=== PATIENT | male | born 1945 | race Caucasian/White ===

== ENCOUNTER 2021-10-21 16:53 | Inpatient (IN) ==
[2021-10-21] MEDS ORDERED: Ondansetron 4 MG/2 ML VIAL IVP PRN (19:48)
[2021-10-21] MEDS ORDERED: Naloxone 0.4 MG/ML INJ IVP PRN (19:48)
[2021-10-21] MEDS ORDERED: Albuterol 2.5 MG/3 ML NEBULIZER IH PRN (19:55)
[2021-10-21] MEDS ORDERED: cefTRIAXone 1,000 MG in Water for inj. (sterile) 10 ML IVP SCH (20:00)
[2021-10-21] MEDS ORDERED: Melatonin 3 MG TABLET PO PRN (21:00)
[2021-10-21] MEDS: Ipratropium/Albuterol Neb 3 ML IH SCH (23:32)
[2021-10-21] MEDS: Nicotine 21 MG PATCH.TD24 TD SCH (23:39)
[2021-10-22] MEDS: Acetaminophen 325 MG TABLET PO PRN (01:03)
[2021-10-22] MEDS: Ipratropium/Albuterol Neb 3 ML IH SCH ×4 (04:34→20:09)
[2021-10-22] MEDS: *HR* Heparin 5,000 UNIT/ML VIAL SQ SCH ×2 (05:11→16:59)
[2021-10-22 05:42] LABS: Basophils % 0.1 %; Hematocrit 31.7 % (37.5-50.1); Hemoglobin 10.4 g/dL (12.9-16.9); Immature Granulocytes % 0.6 % (0-4); Lymphocytes # 0.7 K/mcL (0.6-4.6); Lymphocytes % 6.6 %; Mean Corpuscular HGB Conc 32.8 g/dL (31.6-35.5); Mean Corpuscular Hemoglobin 29.6 pg (28.0-33.3); Mean Corpuscular Volume 90.3 fL (83.0-100.0); Monocytes # 0.4 K/mcL (0.0-1.3); Monocytes % 4.5 %; Neutrophils # 8.7 K/mcL (1.6-8.9); Platelet Count 329 K/mcL (140-400); Red Blood Count 3.51 M/mcL (4.19-5.50); Red Cell Distribution Width 15.6 % (11.5-14.5); Segmented Neutrophils % 88.2 %; White Blood Count 9.8 K/mcL (4.3-11.1)
[2021-10-22 05:51] LABS: INR 1.1; Prothrombin Time 12.2 Seconds (9.4-12.1)
[2021-10-22 05:54] LABS: Activated Partial Thrombo Time 27.5 Seconds (26.0-36.0)
[2021-10-22 05:57] LABS: Alanine Aminotransferase 12 Units/L (7-52); Albumin 3.5 g/dL (3.5-5.7); Albumin/Globulin Ratio 1.2 (1.1-2.2); Alkaline Phosphatase 83 Units/L (34-104); Aspartate Amino Transferase 14 Units/L (13-39); BUN/Creatinine Ratio 25 (6-26); Bilirubin,Total 0.3 mg/dL (0.3-1.0); Blood Urea Nitrogen 23 mg/dL (8-23); Calcium 9.3 mg/dL (8.6-10.3); Carbon Dioxide 34 mEq/L (23-29); Chloride 94 mEq/L (98-107); Glucose 164 mg/dL (70-105); Magnesium 1.9 mg/dL (1.6-2.6); Osmolality,Calculated 285 (280-300); Phosphorous 1.9 mg/dL (2.7-4.5); Potassium 4.2 mEq/L (3.5-5.1); Sodium 134 mEq/L (136-145); Total Protein 6.5 g/dL (6.4-8.9); Troponin I < 0.03 ng/mL (< 0.04); eGFR For African Americans > 60 (> 60); eGFR For Non-African Americans > 60 (> 60)
[2021-10-22 08:23] LABS: ABG Base Excess 7 mEq/L (-2 to 3); ABG HCO3 34 mEq/L (21-27); ABG Oxygen Saturation 96 % (95-98); ABG PCO2 55 mmHg (35-45); ABG PH 7.39 pH Units (7.32-7.45); ABG PO2 83 mmHg (85-104); ABG TCO2 35 mEq/L (20-26)
[2021-10-22] MEDS ORDERED: predniSONE 20 MG TABLET PO SCH (09:00)
[2021-10-22] MEDS: Vancomycin 1,250 MG/262.5 ML IV.SOLN IVPB SCH ×2 (09:03→19:48)
[2021-10-22] MEDS: levoFLOXacin 750 MG/150 ML 750 MG/150 ML BAG IVPB SCH (09:04)
[2021-10-22] MEDS ORDERED: *HR* Propofol 200 MG/20 ML VIAL IVP ONE (11:09)
[2021-10-22] MEDS ORDERED: Lidocaine -MPF 2% 5 ML VIAL ONE (11:09)
[2021-10-22] MEDS ORDERED: Lidocaine -MPF 4% 5 ML AMPUL ONE (11:41)
[2021-10-22] MEDS ORDERED: *HR* Metoprolol 5 MG/5 ML VIAL IVP ONE (12:44)
[2021-10-22] MEDS ORDERED: Azithromycin 500 MG in D5% in Water 250 ML IVPB SCH (13:00)
[2021-10-22 16:43] LABS: Appearance of Body Fluid Cloudy (Clear); Volume of Body Fluid 16 mL
[2021-10-22 16:53] LABS: Appearance of Body Fluid Hazy (Clear); Source of Body Fluid Left Lower Lower Lob; Volume of Body Fluid 25 mL
[2021-10-22] MEDS: Famotidine 20 MG TABLET PO SCH (16:59)
[2021-10-22] MEDS: MethylPREDNISolone 40 MG/ML VIAL IVP SCH (16:59)
[2021-10-22] MEDS: *HR* Ticagrelor 90 MG TABLET PO SCH (19:46)
[2021-10-22] MEDS: Nicotine 21 MG PATCH.TD24 TD SCH (19:46)
[2021-10-23] MEDS: Ipratropium/Albuterol Neb 3 ML IH SCH ×4 (03:53→23:57)
[2021-10-23] MEDS: MethylPREDNISolone 40 MG/ML VIAL IVP SCH ×2 (05:28→17:04)
[2021-10-23] MEDS: *HR* Heparin 5,000 UNIT/ML VIAL SQ SCH ×2 (05:28→17:04)
[2021-10-23 05:37] LABS: Hematocrit 30.7 % (37.5-50.1); Hemoglobin 9.7 g/dL (12.9-16.9); Mean Corpuscular HGB Conc 31.6 g/dL (31.6-35.5); Mean Corpuscular Volume 91.9 fL (83.0-100.0); Platelet Count 326 K/mcL (140-400); Red Blood Count 3.34 M/mcL (4.19-5.50); Red Cell Distribution Width 15.9 % (11.5-14.5)
[2021-10-23 05:38] LABS: White Blood Count 16.7 K/mcL (4.3-11.1)
[2021-10-23 06:02] LABS: BUN/Creatinine Ratio 23 (6-26); Blood Urea Nitrogen 19 mg/dL (8-23); Calcium 8.7 mg/dL (8.6-10.3); Carbon Dioxide 31 mEq/L (23-29); Chloride 98 mEq/L (98-107); Glucose 126 mg/dL (70-105); Osmolality,Calculated 282 (280-300); Phosphorous 2.1 mg/dL (2.7-4.5); Potassium 4.5 mEq/L (3.5-5.1); Sodium 134 mEq/L (136-145); eGFR For African Americans > 60 (> 60); eGFR For Non-African Americans > 60 (> 60)
[2021-10-23] MEDS: Vancomycin 1,250 MG/262.5 ML IV.SOLN IVPB SCH (08:52)
[2021-10-23] MEDS: amLODIPine 5 MG TABLET PO SCH (08:53)
[2021-10-23] MEDS: Famotidine 20 MG TABLET PO SCH ×2 (08:53→16:59)
[2021-10-23] MEDS: levoFLOXacin 750 MG/150 ML 750 MG/150 ML BAG IVPB SCH (08:53)
[2021-10-23] MEDS: Aspirin 81 MG TAB.CHEW PO SCH (08:53)
[2021-10-23] MEDS: *HR* Ticagrelor 90 MG TABLET PO SCH ×2 (08:53→19:57)
[2021-10-23] MEDS: Cholecalciferol (D-3) 1,000 UNIT (25MCG) TABLET PO SCH (08:53)
[2021-10-23] MEDS: Furosemide 20 MG TABLET PO SCH (08:53)
[2021-10-23] MEDS: Nicotine 21 MG PATCH.TD24 TD SCH (19:57)
[2021-10-23] MEDS: Vancomycin 1,500 MG/265 ML IV.SOLN IVPB SCH (22:26)
[2021-10-24] MEDS: Ipratropium/Albuterol Neb 3 ML IH SCH ×4 (03:57→20:38)
[2021-10-24] MEDS: MethylPREDNISolone 40 MG/ML VIAL IVP SCH ×2 (06:17→18:10)
[2021-10-24] MEDS: *HR* Heparin 5,000 UNIT/ML VIAL SQ SCH ×2 (06:17→18:09)
[2021-10-24] MEDS: amLODIPine 5 MG TABLET PO SCH (09:26)
[2021-10-24] MEDS: Aspirin 81 MG TAB.CHEW PO SCH (09:26)
[2021-10-24] MEDS: Furosemide 20 MG TABLET PO SCH (09:26)
[2021-10-24] MEDS: Cholecalciferol (D-3) 1,000 UNIT (25MCG) TABLET PO SCH (09:26)
[2021-10-24] MEDS: Vancomycin 1,500 MG/265 ML IV.SOLN IVPB SCH (09:27)
[2021-10-24] MEDS: *HR* Ticagrelor 90 MG TABLET PO SCH ×2 (09:27→20:25)
[2021-10-24] MEDS: levoFLOXacin 750 MG/150 ML 750 MG/150 ML BAG IVPB SCH (12:28)
[2021-10-24] MEDS: Famotidine 20 MG TABLET PO SCH ×2 (18:04→18:09)
[2021-10-24] MEDS: Acetaminophen 325 MG TABLET PO PRN (20:24)
[2021-10-25] MEDS: Ipratropium/Albuterol Neb 3 ML IH SCH ×2 (04:01→11:03)
[2021-10-25] MEDS: *HR* Heparin 5,000 UNIT/ML VIAL SQ SCH (05:05)
[2021-10-25] MEDS: MethylPREDNISolone 40 MG/ML VIAL IVP SCH (05:06)
[2021-10-25] MEDS ORDERED: Nicotine 21 MG PATCH.TD24 TD SCH ×2 (06:00→09:00)
[2021-10-25] MEDS: Aspirin 81 MG TAB.CHEW PO SCH (07:36)
[2021-10-25] MEDS: Cholecalciferol (D-3) 1,000 UNIT (25MCG) TABLET PO SCH (07:36)
[2021-10-25] MEDS: *HR* Ticagrelor 90 MG TABLET PO SCH (07:37)
[2021-10-25] MEDS: levoFLOXacin 750 MG/150 ML 750 MG/150 ML BAG IVPB SCH (07:37)
[2021-10-25] MEDS: Furosemide 20 MG TABLET PO SCH (07:38)
[2021-10-25] MEDS: Famotidine 20 MG TABLET PO SCH (07:38)
[2021-10-25] MEDS: amLODIPine 5 MG TABLET PO SCH (07:38)
[2021-10-25 11:02] VITALS: BP 130/61; PULSE 110; TEMP 98; O2SAT 92
== END 2021-10-25 13:54 | disposition home or self-care (01) | DRG 871 ==
LOC: 2NENU → SUATTDRO 19:10
PROVIDERS: ADMIT Internal Medicine; ATTEND Family Medicine

== ENCOUNTER 2022-01-14 20:22 | Inpatient (IN) ==
[2022-01-14] MEDS ORDERED: Ondansetron 4 MG/2 ML VIAL IVP PRN (22:11)
[2022-01-14] MEDS ORDERED: Melatonin 3 MG TABLET PO PRN (22:11)
[2022-01-14] MEDS ORDERED: Naloxone 0.4 MG/ML INJ IVP PRN (22:11)
[2022-01-14] MEDS ORDERED: Acetaminophen 325 MG TABLET PO PRN (22:11)
[2022-01-14 23:33] LABS: Adenovirus Not Detected (Not Detect); Bordetella Pertussis Not Detected (Not Detect); Chlamydophila pneumoniae Not Detected (Not Detect); Coronavirus 229E Not Detected (Not Detect); Coronavirus HKU1 Not Detected (Not Detect); Coronavirus NL63 Not Detected (Not Detect); Coronavirus OC43 Not Detected (Not Detect); Human Metapneumovirus Not Detected (Not Detect); Human Rhinovirus/Enterovirus Not Detected (Not Detect); Influenza A Subtype 2009 H1 Not Detected (Not Detect); Influenza B Not Detected (Not Detect); Mycoplasma pneumoniae Not Detected (Not Detect); Parainfluenza Virus 1 Not Detected (Not Detect); Parainfluenza Virus 2 Not Detected (Not Detect); Parainfluenza Virus 3 Not Detected (Not Detect); Parainfluenza Virus 4 Not Detected (Not Detect); Respiratory Syncytial Virus Not Detected (Not Detect); SARS-CoV-2 Not Detected (Not Detect)
[2022-01-14 23:54] LABS: Bilirubin,Urine Negative (Negative); Blood,Urine Negative (Negative); Clarity,Urine Clear (Clear); Color,Urine Light-Yellow (Yellow); Glucose,Urine (UA) Normal (Normal); Ketones,Urine Negative (Negative); Leukocyte Esterase,Urine Negative (Negative); Nitrite,Urine Negative (Negative); PH,Urine 6.5 pH Units (5.0-8.0); Protein,Urine Negative (Neg-Trace); Specific Gravity,Urine > 1.030 (1.010-1.025); Urobilinogen,Urine Normal (Normal)
[2022-01-15] MEDS ORDERED: Albuterol 2.5 MG/3 ML NEBULIZER IH PRN (00:02)
[2022-01-15 01:41] LABS: Basophils % 0.1 %; Hematocrit 30.8 % (37.5-50.1); Hemoglobin 9.8 g/dL (12.9-16.9); Immature Granulocytes % 0.5 % (0-4); Lymphocytes # 0.4 K/mcL (0.6-4.6); Lymphocytes % 3.9 %; Mean Corpuscular HGB Conc 31.8 g/dL (31.6-35.5); Mean Platelet Volume 9.1 fL (9.4-12.4); Monocytes % 0.3 %; Neutrophils # 9.3 K/mcL (1.6-8.9); Platelet Count 313 K/mcL (140-400); Red Cell Distribution Width 16.4 % (11.5-14.5); Segmented Neutrophils % 95.2 %; White Blood Count 9.8 K/mcL (4.3-11.1)
[2022-01-15 01:54] LABS: INR 1.1
[2022-01-15 01:58] LABS: Alanine Aminotransferase 14 Units/L (7-52); Albumin 3.9 g/dL (3.5-5.7); Albumin/Globulin Ratio 1.6 (1.1-2.2); Alkaline Phosphatase 69 Units/L (34-104); Aspartate Amino Transferase 16 Units/L (13-39); BUN/Creatinine Ratio 21 (6-26); Bilirubin,Total 0.3 mg/dL (0.3-1.0); Blood Urea Nitrogen 22 mg/dL (8-23); Calcium 9.7 mg/dL (8.6-10.3); Carbon Dioxide 31 mEq/L (23-29); Chloride 95 mEq/L (98-107); Globulin 2.5 g/dL (2.4-3.5); Glucose 231 mg/dL (70-105); Magnesium 1.7 mg/dL (1.6-2.6); Osmolality,Calculated 295 (280-300); Phosphorous 2.2 mg/dL (2.7-4.5); Potassium 4.3 mEq/L (3.5-5.1); Sodium 137 mEq/L (136-145); Total Protein 6.4 g/dL (6.4-8.9); eGFR For African Americans > 60 (> 60); eGFR For Non-African Americans > 60 (> 60)
[2022-01-15] MEDS: Ipratropium/Albuterol Neb 3 ML IH SCH ×4 (04:04→19:37)
[2022-01-15] MEDS: Doxycycline 100 MG in 0.9 % Sodium Chloride Mini Bag 100 ML IVPB SCH ×2 (04:45→17:31)
[2022-01-15] MEDS: *HR* Heparin 5,000 UNIT/ML VIAL SQ SCH ×2 (04:46→17:31)
[2022-01-15 05:10] LABS: Estimated Average Glucose 140 mg/dl; Hemoglobin A1C 6.5 %
[2022-01-15] MEDS: predniSONE 20 MG TABLET PO SCH (08:41)
[2022-01-15] MEDS: cefTRIAXone 1,000 MG in 0.9 % Sodium Chloride Mini Bag 100 ML IVPB SCH (08:41)
[2022-01-15] MEDS ORDERED: Azithromycin 500 MG in 0.9 % Sodium Chloride 250 ML IVPB SCH (09:00)
[2022-01-15] MEDS ORDERED: Ipratropium/Albuterol Neb 3 ML IH PRN (17:21)
[2022-01-15] MEDS: *HR* Ticagrelor 90 MG TABLET PO SCH (19:59)
[2022-01-16] MEDS: Ipratropium/Albuterol Neb 3 ML IH SCH ×4 (03:35→20:11)
[2022-01-16] MEDS: *HR* Heparin 5,000 UNIT/ML VIAL SQ SCH ×2 (05:15→17:02)
[2022-01-16] MEDS: Doxycycline 100 MG in 0.9 % Sodium Chloride Mini Bag 100 ML IVPB SCH ×2 (05:15→17:02)
[2022-01-16] MEDS: *HR* HYDROcodone/Acet 10/325 mg TABLET PO PRN (08:00)
[2022-01-16] MEDS: cefTRIAXone 1,000 MG in 0.9 % Sodium Chloride Mini Bag 100 ML IVPB SCH (08:00)
[2022-01-16] MEDS: Furosemide 20 MG TABLET PO SCH (08:00)
[2022-01-16] MEDS: amLODIPine 5 MG TABLET PO SCH (08:01)
[2022-01-16] MEDS: *HR* Ticagrelor 90 MG TABLET PO SCH ×2 (08:01→21:16)
[2022-01-16] MEDS: predniSONE 20 MG TABLET PO SCH (08:01)
[2022-01-16] MEDS: Aspirin 81 MG TAB.CHEW PO SCH (08:01)
[2022-01-16 09:40] LABS: Basophils % 0.1 %; Eosinophils % 0.2 %; Hematocrit 30.1 % (37.5-50.1); Hemoglobin 9.5 g/dL (12.9-16.9); Immature Granulocytes % 0.8 % (0-4); Lymphocytes # 1.9 K/mcL (0.6-4.6); Lymphocytes % 9.5 %; Mean Corpuscular HGB Conc 31.6 g/dL (31.6-35.5); Mean Corpuscular Hemoglobin 27.8 pg (28.0-33.3); Mean Platelet Volume 9.5 fL (9.4-12.4); Monocytes # 2.4 K/mcL (0.0-1.3); Monocytes % 12.1 %; Neutrophils # 15.5 K/mcL (1.6-8.9); Platelet Count 332 K/mcL (140-400); Red Blood Count 3.42 M/mcL (4.19-5.50); Red Cell Distribution Width 16.7 % (11.5-14.5); Segmented Neutrophils % 77.3 %
[2022-01-16 09:51] LABS: BUN/Creatinine Ratio 24 (6-26); Blood Urea Nitrogen 20 mg/dL (8-23); Calcium 9.6 mg/dL (8.6-10.3); Carbon Dioxide 31 mEq/L (23-29); Chloride 98 mEq/L (98-107); Glucose 122 mg/dL (70-105); Magnesium 1.9 mg/dL (1.6-2.6); Osmolality,Calculated 288 (280-300); Phosphorous 3.3 mg/dL (2.7-4.5); Potassium 3.9 mEq/L (3.5-5.1); Sodium 137 mEq/L (136-145); eGFR For African Americans > 60 (> 60); eGFR For Non-African Americans > 60 (> 60)
[2022-01-17] MEDS: Ipratropium/Albuterol Neb 3 ML IH SCH ×2 (03:34→07:40)
[2022-01-17] MEDS: *HR* Heparin 5,000 UNIT/ML VIAL SQ SCH ×2 (05:05→16:59)
[2022-01-17] MEDS: Doxycycline 100 MG in 0.9 % Sodium Chloride Mini Bag 100 ML IVPB SCH ×2 (05:06→16:59)
[2022-01-17 05:32] LABS: Basophils % 0.1 %; Eosinophils % 0.2 %; Hemoglobin 8.5 g/dL (12.9-16.9); Immature Granulocytes % 0.6 % (0-4); Lymphocytes # 1.9 K/mcL (0.6-4.6); Lymphocytes % 11.2 %; Mean Corpuscular HGB Conc 31.5 g/dL (31.6-35.5); Mean Corpuscular Hemoglobin 27.9 pg (28.0-33.3); Mean Corpuscular Volume 88.5 fL (83.0-100.0); Mean Platelet Volume 9.6 fL (9.4-12.4); Monocytes # 1.8 K/mcL (0.0-1.3); Monocytes % 10.7 %; Neutrophils # 12.9 K/mcL (1.6-8.9); Platelet Count 319 K/mcL (140-400); Red Blood Count 3.05 M/mcL (4.19-5.50); Red Cell Distribution Width 16.6 % (11.5-14.5); Segmented Neutrophils % 77.2 %; White Blood Count 16.7 K/mcL (4.3-11.1)
[2022-01-17 05:45] LABS: BUN/Creatinine Ratio 27 (6-26); Blood Urea Nitrogen 20 mg/dL (8-23); Calcium 8.8 mg/dL (8.6-10.3); Carbon Dioxide 28 mEq/L (23-29); Chloride 100 mEq/L (98-107); Glucose 136 mg/dL (70-105); Magnesium 1.9 mg/dL (1.6-2.6); Osmolality,Calculated 285 (280-300); Phosphorous 3.6 mg/dL (2.7-4.5); Potassium 4.2 mEq/L (3.5-5.1); Sodium 135 mEq/L (136-145); eGFR For African Americans > 60 (> 60); eGFR For Non-African Americans > 60 (> 60)
[2022-01-17] MEDS: amLODIPine 5 MG TABLET PO SCH (07:21)
[2022-01-17] MEDS: Aspirin 81 MG TAB.CHEW PO SCH (08:07)
[2022-01-17] MEDS: predniSONE 20 MG TABLET PO SCH (08:07)
[2022-01-17] MEDS: *HR* Ticagrelor 90 MG TABLET PO SCH ×2 (08:07→20:07)
[2022-01-17] MEDS: Furosemide 20 MG TABLET PO SCH (08:07)
[2022-01-17] MEDS: cefTRIAXone 1,000 MG in 0.9 % Sodium Chloride Mini Bag 100 ML IVPB SCH (08:07)
[2022-01-17] MEDS: *HR* HYDROcodone/Acet 10/325 mg TABLET PO PRN (10:44)
[2022-01-18 04:46] LABS: Basophils % 0.1 %; Eosinophils % 0.1 %; Hematocrit 27.5 % (37.5-50.1); Immature Granulocytes % 0.8 % (0-4); Lymphocytes # 1.7 K/mcL (0.6-4.6); Lymphocytes % 10.6 %; Mean Corpuscular HGB Conc 32.7 g/dL (31.6-35.5); Mean Corpuscular Hemoglobin 28.6 pg (28.0-33.3); Mean Corpuscular Volume 87.3 fL (83.0-100.0); Mean Platelet Volume 9.4 fL (9.4-12.4); Monocytes # 1.6 K/mcL (0.0-1.3); Monocytes % 9.8 %; Neutrophils # 12.6 K/mcL (1.6-8.9); Platelet Count 334 K/mcL (140-400); Red Blood Count 3.15 M/mcL (4.19-5.50); Red Cell Distribution Width 16.3 % (11.5-14.5); Segmented Neutrophils % 78.6 %
[2022-01-18 05:08] LABS: % Iron Saturation 6 % (20-55); BUN/Creatinine Ratio 29 (6-26); Blood Urea Nitrogen 22 mg/dL (8-23); Calcium 9.2 mg/dL (8.6-10.3); Carbon Dioxide 30 mEq/L (23-29); Chloride 100 mEq/L (98-107); Glucose 131 mg/dL (70-105); Iron 21 mcg/dL (65-175); Osmolality,Calculated 283 (280-300); Phosphorous 3.4 mg/dL (2.7-4.5); Potassium 4.4 mEq/L (3.5-5.1); Sodium 134 mEq/L (136-145); Transferrin 267 mg/dL (203-362); eGFR For African Americans > 60 (> 60); eGFR For Non-African Americans > 60 (> 60)
[2022-01-18 05:25] LABS: Ferritin 10 ng/mL (20-250)
[2022-01-18 05:29] LABS: Folate 7.7 ng/mL (3.0-16.0)
[2022-01-18] MEDS: *HR* Heparin 5,000 UNIT/ML VIAL SQ SCH (05:36)
[2022-01-18] MEDS: Doxycycline 100 MG in 0.9 % Sodium Chloride Mini Bag 100 ML IVPB SCH (05:36)
[2022-01-18] MEDS: *HR* HYDROcodone/Acet 10/325 mg TABLET PO PRN (06:41)
[2022-01-18] MEDS: amLODIPine 5 MG TABLET PO SCH (09:03)
[2022-01-18] MEDS: Aspirin 81 MG TAB.CHEW PO SCH (09:10)
[2022-01-18] MEDS: *HR* Ticagrelor 90 MG TABLET PO SCH (09:10)
[2022-01-18] MEDS: predniSONE 20 MG TABLET PO SCH (09:11)
[2022-01-18] MEDS: Furosemide 20 MG TABLET PO SCH (09:11)
[2022-01-18] MEDS: cefTRIAXone 1,000 MG in 0.9 % Sodium Chloride Mini Bag 100 ML IVPB SCH (09:11)
[2022-01-18 10:27] VITALS: PULSE 77; TEMP 98.1; O2SAT 92
[2022-01-18 12:04] VITALS: BP 116/64
== END 2022-01-18 12:31 | disposition home or self-care (01) | DRG 193 ==
LOC: 3BNU → SUATTDRO 21:30 → 3BNU 01-17 17:53
PROVIDERS: ADMIT Internal Medicine; ATTEND Internal Medicine

== ENCOUNTER 2022-03-16 11:40 | Inpatient (IN) ==
[2022-03-16] MEDS ORDERED: methylPREDNISolone 125 MG/2 ML VIAL IVP ONE (11:48)
[2022-03-16] MEDS ORDERED: Ipratropium/Albuterol Neb 3 ML IH ONE (11:48)
[2022-03-16 11:58] LABS: ABG Base Excess 11 mEq/L (-2 to 3); ABG HCO3 39 mEq/L (21-27); ABG Oxygen Saturation 81 % (95-98); ABG PCO2 66 mmHg (35-45); ABG PH 7.38 pH Units (7.32-7.45); ABG PO2 48 mmHg (85-104); ABG TCO2 41 mEq/L (20-26)
[2022-03-16 12:14] LABS: Basophils % 0.2 %; Eosinophils # 0.3 K/mcL (0.0-0.6); Eosinophils % 1.8 %; Hemoglobin 11.3 g/dL (12.9-16.9); Immature Granulocytes % 0.7 % (0-4); Lymphocytes # 1.9 K/mcL (0.6-4.6); Lymphocytes % 11.9 %; Mean Corpuscular HGB Conc 29.7 g/dL (31.6-35.5); Mean Corpuscular Hemoglobin 27.4 pg (28.0-33.3); Mean Platelet Volume 8.8 fL (9.4-12.4); Monocytes # 2.1 K/mcL (0.0-1.3); Monocytes % 12.7 %; Neutrophils # 11.8 K/mcL (1.6-8.9); Platelet Count 356 K/mcL (140-400); Red Blood Count 4.13 M/mcL (4.19-5.50); Red Cell Distribution Width 16.4 % (11.5-14.5); Segmented Neutrophils % 72.7 %; White Blood Count 16.3 K/mcL (4.3-11.1)
[2022-03-16] MEDS ORDERED: levoFLOXacin 750 MG/150 ML 750 MG/150 ML BAG IVPB ONE (12:22)
[2022-03-16 12:41] LABS: BUN/Creatinine Ratio 26 (6-26); Blood Urea Nitrogen 27 mg/dL (8-23); Calcium 10.5 mg/dL (8.6-10.3); Carbon Dioxide 43 mEq/L (23-29); Chloride 92 mEq/L (98-107); Glucose 140 mg/dL (70-105); Osmolality,Calculated 299 (280-300); Potassium 4.1 mEq/L (3.5-5.1); Sodium 141 mEq/L (136-145); Troponin I < 0.03 ng/mL (< 0.04); eGFR For African Americans > 60 (> 60); eGFR For Non-African Americans > 60 (> 60)
[2022-03-16] MEDS ORDERED: Ondansetron 4 MG/2 ML VIAL IVP PRN (13:31)
[2022-03-16] MEDS ORDERED: Naloxone 0.4 MG/ML INJ IVP PRN (13:31)
[2022-03-16] MEDS ORDERED: Ringers Solution, Lactated 1,000 ML IVC SCH (13:45)
[2022-03-16] MEDS: *HR* HYDROcodone/Acet 10/325 mg TABLET PO PRN (14:39)
[2022-03-16] MEDS: Ipratropium/Albuterol Neb 3 ML IH SCH ×2 (16:26→20:30)
[2022-03-16] MEDS: Famotidine 20 MG TABLET PO SCH (20:17)
[2022-03-16] MEDS: *HR* Ticagrelor 90 MG TABLET PO SCH (20:17)
[2022-03-16] MEDS: *HR* Heparin 5,000 UNIT/ML VIAL SQ SCH (20:43)
[2022-03-16 21:01] LABS: Bilirubin,Urine Negative (Negative); Blood,Urine Negative (Negative); Clarity,Urine Clear (Clear); Color,Urine Yellow (Yellow); Glucose,Urine (UA) Normal (Normal); Ketones,Urine Negative (Negative); Leukocyte Esterase,Urine Negative (Negative); Nitrite,Urine Negative (Negative); Protein,Urine Trace mg/dL (Neg-Trace); Specific Gravity,Urine 1.025 (1.010-1.025); Urobilinogen,Urine Normal (Normal)
[2022-03-17] MEDS: Ipratropium/Albuterol Neb 3 ML IH SCH ×4 (04:14→19:43)
[2022-03-17] MEDS: *HR* Heparin 5,000 UNIT/ML VIAL SQ SCH ×3 (05:32→21:12)
[2022-03-17 06:11] LABS: Basophils % 0.1 %; Hematocrit 28.9 % (37.5-50.1); Immature Granulocytes % 0.5 % (0-4); Lymphocytes # 0.9 K/mcL (0.6-4.6); Lymphocytes % 7.2 %; Mean Corpuscular HGB Conc 31.8 g/dL (31.6-35.5); Mean Corpuscular Hemoglobin 27.7 pg (28.0-33.3); Mean Platelet Volume 9.1 fL (9.4-12.4); Monocytes # 1.3 K/mcL (0.0-1.3); Monocytes % 10.6 %; Neutrophils # 9.8 K/mcL (1.6-8.9); Platelet Count 268 K/mcL (140-400); Red Blood Count 3.32 M/mcL (4.19-5.50); Red Cell Distribution Width 16.2 % (11.5-14.5); Segmented Neutrophils % 81.6 %
[2022-03-17 06:23] LABS: Hemoglobin 9.2 g/dL (12.9-16.9)
[2022-03-17 07:03] LABS: BUN/Creatinine Ratio 33 (6-26); Blood Urea Nitrogen 29 mg/dL (8-23); Calcium 9.5 mg/dL (8.6-10.3); Carbon Dioxide 39 mEq/L (23-29); Chloride 96 mEq/L (98-107); Glucose 113 mg/dL (70-105); Osmolality,Calculated 295 (280-300); Potassium 4.4 mEq/L (3.5-5.1); Sodium 139 mEq/L (136-145); eGFR For African Americans > 60 (> 60); eGFR For Non-African Americans > 60 (> 60)
[2022-03-17] MEDS ORDERED: Azithromycin 500 MG in 0.9 % Sodium Chloride 250 ML IVPB SCH (09:00)
[2022-03-17] MEDS: Famotidine 20 MG TABLET PO SCH ×2 (09:34→21:12)
[2022-03-17] MEDS: amLODIPine 5 MG TABLET PO SCH (09:34)
[2022-03-17] MEDS: Aspirin 81 MG TAB.CHEW PO SCH (09:34)
[2022-03-17] MEDS: *HR* Ticagrelor 90 MG TABLET PO SCH ×2 (09:34→21:12)
[2022-03-17] MEDS: Cholecalciferol (D-3) 1,000 UNIT (25MCG) TABLET PO SCH (09:34)
[2022-03-17] MEDS: MethylPREDNISolone 40 MG/ML VIAL IVP SCH ×3 (09:39→23:42)
[2022-03-17] MEDS ORDERED: Isovue-370 500 ML BOTTLE IVP ONE (15:40)
[2022-03-17] MEDS: Acetylcysteine 10% 2 ML INHSOL IH SCH (19:44)
[2022-03-18] MEDS: Ipratropium/Albuterol Neb 3 ML IH SCH ×4 (03:50→20:56)
[2022-03-18] MEDS: Acetylcysteine 10% 2 ML INHSOL IH SCH ×4 (03:50→20:56)
[2022-03-18 05:08] LABS: Basophils % 0.1 %; Hematocrit 29.1 % (37.5-50.1); Hemoglobin 9.2 g/dL (12.9-16.9); Lymphocytes # 0.5 K/mcL (0.6-4.6); Lymphocytes % 3.1 %; Mean Corpuscular HGB Conc 31.6 g/dL (31.6-35.5); Mean Corpuscular Hemoglobin 27.2 pg (28.0-33.3); Mean Corpuscular Volume 86.1 fL (83.0-100.0); Mean Platelet Volume 9.4 fL (9.4-12.4); Monocytes # 0.4 K/mcL (0.0-1.3); Monocytes % 2.5 %; Neutrophils # 15.2 K/mcL (1.6-8.9); Platelet Count 279 K/mcL (140-400); Red Blood Count 3.38 M/mcL (4.19-5.50); Red Cell Distribution Width 16.4 % (11.5-14.5); Segmented Neutrophils % 93.3 %; White Blood Count 16.3 K/mcL (4.3-11.1)
[2022-03-18 05:27] LABS: BUN/Creatinine Ratio 32 (6-26); Blood Urea Nitrogen 23 mg/dL (8-23); Calcium 9.5 mg/dL (8.6-10.3); Carbon Dioxide 35 mEq/L (23-29); Chloride 99 mEq/L (98-107); Glucose 160 mg/dL (70-105); Osmolality,Calculated 295 (280-300); Potassium 4.3 mEq/L (3.5-5.1); Sodium 139 mEq/L (136-145); eGFR For African Americans > 60 (> 60); eGFR For Non-African Americans > 60 (> 60)
[2022-03-18] MEDS: *HR* Heparin 5,000 UNIT/ML VIAL SQ SCH ×3 (05:35→21:40)
[2022-03-18 06:23] LABS: ABG Base Excess 11 mEq/L (-2 to 3); ABG HCO3 37 mEq/L (21-27); ABG Oxygen Saturation 90 % (95-98); ABG PCO2 54 mmHg (35-45); ABG PH 7.44 pH Units (7.32-7.45); ABG PO2 59 mmHg (85-104); ABG TCO2 38 mEq/L (20-26)
[2022-03-18] MEDS: *HR* HYDROcodone/Acet 10/325 mg TABLET PO PRN (08:27)
[2022-03-18] MEDS: Cholecalciferol (D-3) 1,000 UNIT (25MCG) TABLET PO SCH (08:29)
[2022-03-18] MEDS: Furosemide 20 MG TABLET PO SCH (08:29)
[2022-03-18] MEDS: Azithromycin 250 MG TABLET PO SCH (08:29)
[2022-03-18] MEDS: Famotidine 20 MG TABLET PO SCH ×2 (08:29→21:39)
[2022-03-18] MEDS: Aspirin 81 MG TAB.CHEW PO SCH (08:29)
[2022-03-18] MEDS: amLODIPine 5 MG TABLET PO SCH (08:30)
[2022-03-18] MEDS: MethylPREDNISolone 40 MG/ML VIAL IVP SCH ×3 (08:30→23:48)
[2022-03-18] MEDS: *HR* Ticagrelor 90 MG TABLET PO SCH ×2 (08:30→21:40)
[2022-03-19 02:14] LABS: Basophils % 0.1 %; Hematocrit 28.9 % (37.5-50.1); Hemoglobin 9.2 g/dL (12.9-16.9); Immature Granulocytes % 0.7 % (0-4); Lymphocytes # 0.5 K/mcL (0.6-4.6); Lymphocytes % 2.9 %; Mean Corpuscular HGB Conc 31.8 g/dL (31.6-35.5); Mean Corpuscular Hemoglobin 27.1 pg (28.0-33.3); Mean Platelet Volume 9.2 fL (9.4-12.4); Monocytes # 0.7 K/mcL (0.0-1.3); Monocytes % 4.3 %; Neutrophils # 15.3 K/mcL (1.6-8.9); Platelet Count 272 K/mcL (140-400); Red Cell Distribution Width 16.4 % (11.5-14.5); White Blood Count 16.7 K/mcL (4.3-11.1)
[2022-03-19 02:29] LABS: BUN/Creatinine Ratio 27 (6-26); Blood Urea Nitrogen 20 mg/dL (8-23); Calcium 9.2 mg/dL (8.6-10.3); Carbon Dioxide 35 mEq/L (23-29); Chloride 98 mEq/L (98-107); Glucose 134 mg/dL (70-105); Osmolality,Calculated 289 (280-300); Potassium 4.1 mEq/L (3.5-5.1); Sodium 137 mEq/L (136-145); eGFR For African Americans > 60 (> 60); eGFR For Non-African Americans > 60 (> 60)
[2022-03-19] MEDS: Ipratropium/Albuterol Neb 3 ML IH SCH ×4 (03:55→20:24)
[2022-03-19] MEDS: Acetylcysteine 10% 2 ML INHSOL IH SCH ×4 (03:56→20:24)
[2022-03-19] MEDS: *HR* Heparin 5,000 UNIT/ML VIAL SQ SCH ×3 (06:20→20:25)
[2022-03-19] MEDS: amLODIPine 5 MG TABLET PO SCH (08:56)
[2022-03-19] MEDS: Azithromycin 250 MG TABLET PO SCH (08:56)
[2022-03-19] MEDS: Aspirin 81 MG TAB.CHEW PO SCH (08:56)
[2022-03-19] MEDS: *HR* Ticagrelor 90 MG TABLET PO SCH ×2 (08:56→20:25)
[2022-03-19] MEDS: Famotidine 20 MG TABLET PO SCH ×2 (08:56→20:25)
[2022-03-19] MEDS: Furosemide 20 MG TABLET PO SCH (08:56)
[2022-03-19] MEDS: Cholecalciferol (D-3) 1,000 UNIT (25MCG) TABLET PO SCH (08:57)
[2022-03-19] MEDS: MethylPREDNISolone 40 MG/ML VIAL IVP SCH ×3 (08:57→23:51)
[2022-03-19] MEDS: cefTRIAXone 1,000 MG in 0.9 % Sodium Chloride 10 ML IVP SCH (14:03)
[2022-03-20] MEDS: Acetylcysteine 10% 2 ML INHSOL IH SCH ×5 (03:31→20:10)
[2022-03-20] MEDS: Ipratropium/Albuterol Neb 3 ML IH SCH ×4 (03:31→20:10)
[2022-03-20 05:42] LABS: Basophils % 0.1 %; Hematocrit 29.6 % (37.5-50.1); Hemoglobin 9.7 g/dL (12.9-16.9); Immature Granulocytes % 0.7 % (0-4); Lymphocytes # 0.4 K/mcL (0.6-4.6); Lymphocytes % 2.8 %; Mean Corpuscular HGB Conc 32.8 g/dL (31.6-35.5); Mean Corpuscular Hemoglobin 27.9 pg (28.0-33.3); Mean Corpuscular Volume 85.1 fL (83.0-100.0); Mean Platelet Volume 9.7 fL (9.4-12.4); Monocytes # 0.8 K/mcL (0.0-1.3); Monocytes % 5.1 %; Neutrophils # 14.2 K/mcL (1.6-8.9); Platelet Count 287 K/mcL (140-400); Red Blood Count 3.48 M/mcL (4.19-5.50); Red Cell Distribution Width 16.2 % (11.5-14.5); Segmented Neutrophils % 91.3 %; White Blood Count 15.5 K/mcL (4.3-11.1)
[2022-03-20] MEDS: *HR* Heparin 5,000 UNIT/ML VIAL SQ SCH ×3 (05:46→20:38)
[2022-03-20 06:08] LABS: BUN/Creatinine Ratio 26 (6-26); Blood Urea Nitrogen 19 mg/dL (8-23); Calcium 9.1 mg/dL (8.6-10.3); Carbon Dioxide 30 mEq/L (23-29); Chloride 100 mEq/L (98-107); Glucose 158 mg/dL (70-105); Osmolality,Calculated 290 (280-300); Potassium 4.3 mEq/L (3.5-5.1); Sodium 137 mEq/L (136-145); eGFR For African Americans > 60 (> 60); eGFR For Non-African Americans > 60 (> 60)
[2022-03-20] MEDS: cefTRIAXone 1,000 MG in 0.9 % Sodium Chloride 10 ML IVP SCH (09:14)
[2022-03-20] MEDS: MethylPREDNISolone 40 MG/ML VIAL IVP SCH ×3 (09:15→23:21)
[2022-03-20] MEDS: Azithromycin 250 MG TABLET PO SCH (09:15)
[2022-03-20] MEDS: Cholecalciferol (D-3) 1,000 UNIT (25MCG) TABLET PO SCH (09:15)
[2022-03-20] MEDS: *HR* Ticagrelor 90 MG TABLET PO SCH ×2 (09:16→20:38)
[2022-03-20] MEDS: Famotidine 20 MG TABLET PO SCH ×2 (09:16→20:38)
[2022-03-20] MEDS: amLODIPine 5 MG TABLET PO SCH (09:16)
[2022-03-20] MEDS: Aspirin 81 MG TAB.CHEW PO SCH (09:16)
[2022-03-20] MEDS: Furosemide 20 MG TABLET PO SCH (09:16)
[2022-03-20] MEDS: *HR* HYDROcodone/Acet 10/325 mg TABLET PO PRN (16:35)
[2022-03-20] MEDS: Budesonide/Formoterol 160/4.5 1 PUFF INH IH SCH (20:11)
[2022-03-21 02:10] LABS: Basophils % 0.1 %; Hematocrit 29.9 % (37.5-50.1); Hemoglobin 9.8 g/dL (12.9-16.9); Immature Granulocytes % 0.7 % (0-4); Lymphocytes # 0.4 K/mcL (0.6-4.6); Lymphocytes % 2.2 %; Mean Corpuscular HGB Conc 32.8 g/dL (31.6-35.5); Mean Corpuscular Hemoglobin 27.8 pg (28.0-33.3); Mean Corpuscular Volume 84.9 fL (83.0-100.0); Mean Platelet Volume 9.8 fL (9.4-12.4); Monocytes # 0.8 K/mcL (0.0-1.3); Monocytes % 4.8 %; Platelet Count 274 K/mcL (140-400); Red Blood Count 3.52 M/mcL (4.19-5.50); Red Cell Distribution Width 16.2 % (11.5-14.5); Segmented Neutrophils % 92.2 %; White Blood Count 16.2 K/mcL (4.3-11.1)
[2022-03-21] MEDS: Ipratropium/Albuterol Neb 3 ML IH SCH ×4 (03:54→20:23)
[2022-03-21] MEDS: Acetylcysteine 10% 2 ML INHSOL IH SCH ×4 (03:55→20:23)
[2022-03-21 04:44] LABS: BUN/Creatinine Ratio 25 (6-26); Blood Urea Nitrogen 22 mg/dL (8-23); Calcium 8.9 mg/dL (8.6-10.3); Carbon Dioxide 29 mEq/L (23-29); Chloride 99 mEq/L (98-107); Glucose 147 mg/dL (70-105); Osmolality,Calculated 286 (280-300); Potassium 4.4 mEq/L (3.5-5.1); Sodium 135 mEq/L (136-145); eGFR For African Americans > 60 (> 60); eGFR For Non-African Americans > 60 (> 60)
[2022-03-21] MEDS: *HR* Heparin 5,000 UNIT/ML VIAL SQ SCH ×3 (04:48→20:26)
[2022-03-21] MEDS: Budesonide/Formoterol 160/4.5 1 PUFF INH IH SCH ×2 (07:59→20:23)
[2022-03-21] MEDS: cefTRIAXone 1,000 MG in 0.9 % Sodium Chloride 10 ML IVP SCH (08:48)
[2022-03-21] MEDS: MethylPREDNISolone 40 MG/ML VIAL IVP SCH ×2 (08:49→20:26)
[2022-03-21] MEDS ORDERED: *HR* FentaNYL (PF) 100 MCG/2 ML VIAL ONE (08:57)
[2022-03-21] MEDS ORDERED: Lidocaine -MPF 4% 5 ML AMPUL ONE (08:57)
[2022-03-21] MEDS ORDERED: Ondansetron 4 MG/2 ML VIAL ONE (08:57)
[2022-03-21] MEDS ORDERED: Lidocaine -MPF 2% 2 ML VIAL ONE (08:57)
[2022-03-21] MEDS ORDERED: *HR* Propofol 200 MG/20 ML VIAL IVP ONE (08:57)
[2022-03-21] MEDS ORDERED: *HR* Succinylcholine 200 MG/10 ML VIAL IVP ONE (08:57)
[2022-03-21] MEDS ORDERED: Promethazine 6.25 MG in Water for inj. (sterile) 20 ML IVPB PRN (09:10)
[2022-03-21] MEDS ORDERED: Ondansetron 4 MG/2 ML VIAL IVP PRN (09:10)
[2022-03-21] MEDS ORDERED: *HR* OxyCODONE Immed Rel 5 MG TABLET PO PRN (09:10)
[2022-03-21] MEDS ORDERED: *HR* HYDROmorphone PF 0.5 MG/0.5 ML SYRINGE IVP PRN (09:10)
[2022-03-21] MEDS: Famotidine 20 MG TABLET PO SCH ×2 (09:22→20:27)
[2022-03-21] MEDS: Cholecalciferol (D-3) 1,000 UNIT (25MCG) TABLET PO SCH (09:22)
[2022-03-21] MEDS: *HR* Ticagrelor 90 MG TABLET PO SCH ×2 (09:22→20:27)
[2022-03-21] MEDS: amLODIPine 5 MG TABLET PO SCH (09:22)
[2022-03-21] MEDS: Aspirin 81 MG TAB.CHEW PO SCH (09:22)
[2022-03-21] MEDS: Furosemide 20 MG TABLET PO SCH (09:22)
[2022-03-21] MEDS: Azithromycin 250 MG TABLET PO SCH (09:23)
[2022-03-21] MEDS ORDERED: Acetylcysteine 10% 2 ML INHSOL IH ONE (09:35)
[2022-03-21 19:24] LABS: Appearance of Body Fluid Slightly Hazy (Clear)
[2022-03-21 19:25] LABS: Volume of Body Fluid 26 mL
[2022-03-22 03:21] LABS: Basophils % 0.1 %; Hematocrit 28.8 % (37.5-50.1); Hemoglobin 9.4 g/dL (12.9-16.9); Immature Granulocytes % 0.5 % (0-4); Lymphocytes # 0.4 K/mcL (0.6-4.6); Lymphocytes % 2.8 %; Mean Corpuscular HGB Conc 32.6 g/dL (31.6-35.5); Mean Corpuscular Hemoglobin 27.4 pg (28.0-33.3); Mean Platelet Volume 10.1 fL (9.4-12.4); Monocytes # 0.6 K/mcL (0.0-1.3); Monocytes % 4.5 %; Platelet Count 272 K/mcL (140-400); Red Blood Count 3.43 M/mcL (4.19-5.50); Segmented Neutrophils % 92.1 %; White Blood Count 14.1 K/mcL (4.3-11.1)
[2022-03-22 03:42] LABS: BUN/Creatinine Ratio 29 (6-26); Blood Urea Nitrogen 22 mg/dL (8-23); Calcium 8.8 mg/dL (8.6-10.3); Carbon Dioxide 27 mEq/L (23-29); Chloride 98 mEq/L (98-107); Glucose 174 mg/dL (70-105); Osmolality,Calculated 282 (280-300); Potassium 4.6 mEq/L (3.5-5.1); Sodium 132 mEq/L (136-145); eGFR For African Americans > 60 (> 60); eGFR For Non-African Americans > 60 (> 60)
[2022-03-22] MEDS: Ipratropium/Albuterol Neb 3 ML IH SCH ×4 (03:46→21:21)
[2022-03-22] MEDS: Acetylcysteine 10% 2 ML INHSOL IH SCH (03:47)
[2022-03-22] MEDS: *HR* HYDROcodone/Acet 10/325 mg TABLET PO PRN (03:57)
[2022-03-22] MEDS: *HR* Heparin 5,000 UNIT/ML VIAL SQ SCH ×3 (05:19→21:04)
[2022-03-22] MEDS: Azithromycin 250 MG TABLET PO SCH (09:16)
[2022-03-22] MEDS: amLODIPine 5 MG TABLET PO SCH (09:17)
[2022-03-22] MEDS: Cholecalciferol (D-3) 1,000 UNIT (25MCG) TABLET PO SCH (09:17)
[2022-03-22] MEDS: Furosemide 20 MG TABLET PO SCH (09:18)
[2022-03-22] MEDS: Famotidine 20 MG TABLET PO SCH ×2 (09:18→21:04)
[2022-03-22] MEDS: *HR* Ticagrelor 90 MG TABLET PO SCH ×2 (09:18→21:04)
[2022-03-22] MEDS: MethylPREDNISolone 40 MG/ML VIAL IVP SCH ×2 (09:18→21:04)
[2022-03-22] MEDS: Aspirin 81 MG TAB.CHEW PO SCH (09:18)
[2022-03-22] MEDS: cefTRIAXone 1,000 MG in 0.9 % Sodium Chloride 10 ML IVP SCH (09:18)
[2022-03-22] MEDS: Budesonide/Formoterol 160/4.5 1 PUFF INH IH SCH ×2 (10:17→21:21)
[2022-03-23] MEDS: *HR* HYDROcodone/Acet 10/325 mg TABLET PO PRN (01:26)
[2022-03-23] MEDS: Ipratropium/Albuterol Neb 3 ML IH SCH ×2 (04:44→10:43)
[2022-03-23 05:10] VITALS: PULSE 72
[2022-03-23] MEDS: *HR* Heparin 5,000 UNIT/ML VIAL SQ SCH (05:53)
[2022-03-23 07:25] VITALS: BP 129/71; TEMP 98.2
[2022-03-23] MEDS: Aspirin 81 MG TAB.CHEW PO SCH (08:23)
[2022-03-23] MEDS: *HR* Ticagrelor 90 MG TABLET PO SCH (08:24)
[2022-03-23] MEDS: Furosemide 20 MG TABLET PO SCH (08:25)
[2022-03-23] MEDS: amLODIPine 5 MG TABLET PO SCH (08:27)
[2022-03-23] MEDS: Cholecalciferol (D-3) 1,000 UNIT (25MCG) TABLET PO SCH (08:28)
[2022-03-23] MEDS: Famotidine 20 MG TABLET PO SCH (08:28)
[2022-03-23] MEDS: Azithromycin 250 MG TABLET PO SCH (08:36)
[2022-03-23] MEDS: cefTRIAXone 1,000 MG in 0.9 % Sodium Chloride 10 ML IVP SCH (09:06)
[2022-03-23] MEDS: MethylPREDNISolone 40 MG/ML VIAL IVP SCH (09:06)
[2022-03-23] MEDS: Budesonide/Formoterol 160/4.5 1 PUFF INH IH SCH (10:43)
[2022-03-23 10:44] VITALS: O2SAT 92
== END 2022-03-23 13:56 | disposition home or self-care (01) | DRG 163 ==
LOC: EMEROOARM 11:40 → SUATTDRO 18:04 → 2NENU 18:04
PROVIDERS: ADMIT Internal Medicine; ATTEND Family Medicine

== ENCOUNTER 2022-05-09 21:46 | Inpatient (IN) ==
[2022-05-09] MEDS ORDERED: Ipratropium/Albuterol Neb 3 ML IH ONE (22:00)
[2022-05-09] MEDS ORDERED: Albuterol 2.5 MG/3 ML NEBULIZER IH ONE (22:00)
[2022-05-09] MEDS ORDERED: methylPREDNISolone 125 MG/2 ML VIAL IVP ONE (22:00)
[2022-05-09] MEDS ORDERED: Azithromycin 500 MG in 0.9 % Sodium Chloride 250 ML IVPB ONE (22:00)
[2022-05-09 22:25] LABS: Basophils % 0.1 %; Eosinophils # 0.3 K/mcL (0.0-0.6); Eosinophils % 1.6 %; Hematocrit 35.5 % (37.5-50.1); Hemoglobin 10.8 g/dL (12.9-16.9); Immature Granulocytes % 0.5 % (0-4); Lymphocytes # 2.1 K/mcL (0.6-4.6); Lymphocytes % 10.6 %; Mean Corpuscular HGB Conc 30.4 g/dL (31.6-35.5); Mean Corpuscular Hemoglobin 25.6 pg (28.0-33.3); Mean Corpuscular Volume 84.1 fL (83.0-100.0); Mean Platelet Volume 9.6 fL (9.4-12.4); Monocytes # 2.9 K/mcL (0.0-1.3); Neutrophils # 14.1 K/mcL (1.6-8.9); Platelet Count 336 K/mcL (140-400); Red Blood Count 4.22 M/mcL (4.19-5.50); Red Cell Distribution Width 16.7 % (11.5-14.5); Segmented Neutrophils % 72.2 %; White Blood Count 19.5 K/mcL (4.3-11.1)
[2022-05-09 22:30] LABS: ABG Base Excess 8 mEq/L (-2 to 3); ABG HCO3 35 mEq/L (21-27); ABG Oxygen Saturation 99 % (95-98); ABG PCO2 63 mmHg (35-45); ABG PH 7.36 pH Units (7.32-7.45); ABG PO2 151 mmHg (85-104); ABG TCO2 37 mEq/L (20-26); Blood Gas Pressure Support 6 cm H2O
[2022-05-09] MEDS ORDERED: Vancomycin 1,250 MG/262.5 ML IV.SOLN IVPB ONE (22:31)
[2022-05-09 22:51] LABS: Alanine Aminotransferase 14 Units/L (7-52); Albumin 3.9 g/dL (3.5-5.7); Albumin/Globulin Ratio 1.3 (1.1-2.2); Alkaline Phosphatase 83 Units/L (34-104); Aspartate Amino Transferase 15 Units/L (13-39); BUN/Creatinine Ratio 26 (6-26); Bilirubin,Total 0.4 mg/dL (0.3-1.0); Blood Urea Nitrogen 22 mg/dL (8-23); Calcium 9.6 mg/dL (8.6-10.3); Carbon Dioxide 40 mEq/L (23-29); Chloride 98 mEq/L (98-107); Glucose 114 mg/dL (70-105); Magnesium 2.1 mg/dL (1.6-2.6); Osmolality,Calculated 296 (280-300); Potassium 4.4 mEq/L (3.5-5.1); Sodium 141 mEq/L (136-145); Total Protein 6.9 g/dL (6.4-8.9); eGFR For African Americans > 60 (> 60); eGFR For Non-African Americans > 60 (> 60)
[2022-05-09] MEDS ORDERED: Cefepime HCl 1,000 MG in 0.9 % Sodium Chloride 10 ML IVP ONE (23:00)
[2022-05-09 23:08] LABS: Adenovirus Not Detected (Not Detect); Bordetella Pertussis Not Detected (Not Detect); Chlamydophila pneumoniae Not Detected (Not Detect); Coronavirus 229E Not Detected (Not Detect); Coronavirus HKU1 Not Detected (Not Detect); Coronavirus NL63 Not Detected (Not Detect); Coronavirus OC43 Not Detected (Not Detect); Human Metapneumovirus Not Detected (Not Detect); Human Rhinovirus/Enterovirus Not Detected (Not Detect); Influenza A Subtype 2009 H1 Not Detected (Not Detect); Influenza B Not Detected (Not Detect); Mycoplasma pneumoniae Not Detected (Not Detect); Parainfluenza Virus 1 Not Detected (Not Detect); Parainfluenza Virus 2 Not Detected (Not Detect); Parainfluenza Virus 3 Not Detected (Not Detect); Parainfluenza Virus 4 Not Detected (Not Detect); Respiratory Syncytial Virus Not Detected (Not Detect); SARS-CoV-2 Not Detected (Not Detect)
[2022-05-10] MEDS ORDERED: Ondansetron ODT 4 MG TAB.RAPDIS SL PRN (00:09)
[2022-05-10] MEDS ORDERED: Naloxone 0.4 MG/ML INJ IVP PRN (00:09)
[2022-05-10] MEDS ORDERED: Melatonin 3 MG TABLET PO PRN (00:09)
[2022-05-10 01:55] LABS: Basophils % 0.1 %; Eosinophils % 0.2 %; Hematocrit 32.9 % (37.5-50.1); Hemoglobin 10.3 g/dL (12.9-16.9); Immature Granulocytes % 0.4 % (0-4); Lymphocytes # 0.7 K/mcL (0.6-4.6); Lymphocytes % 2.9 %; Mean Corpuscular HGB Conc 31.3 g/dL (31.6-35.5); Mean Corpuscular Hemoglobin 26.3 pg (28.0-33.3); Mean Corpuscular Volume 83.9 fL (83.0-100.0); Mean Platelet Volume 9.6 fL (9.4-12.4); Monocytes # 0.7 K/mcL (0.0-1.3); Monocytes % 2.8 %; Neutrophils # 21.9 K/mcL (1.6-8.9); Platelet Count 308 K/mcL (140-400); Red Blood Count 3.92 M/mcL (4.19-5.50); Red Cell Distribution Width 16.8 % (11.5-14.5); Segmented Neutrophils % 93.6 %; White Blood Count 23.4 K/mcL (4.3-11.1)
[2022-05-10 01:58] LABS: Eosinophils # 0.1 K/mcL (0.0-0.6)
[2022-05-10 02:15] LABS: Alanine Aminotransferase 13 Units/L (7-52); Albumin 3.8 g/dL (3.5-5.7); Albumin/Globulin Ratio 1.4 (1.1-2.2); Alkaline Phosphatase 77 Units/L (34-104); Aspartate Amino Transferase 14 Units/L (13-39); BUN/Creatinine Ratio 26 (6-26); Bilirubin,Total 0.5 mg/dL (0.3-1.0); Blood Urea Nitrogen 21 mg/dL (8-23); Calcium 9.3 mg/dL (8.6-10.3); Carbon Dioxide 35 mEq/L (23-29); Chloride 99 mEq/L (98-107); Globulin 2.8 g/dL (2.4-3.5); Glucose 123 mg/dL (70-105); Magnesium 1.9 mg/dL (1.6-2.6); Osmolality,Calculated 296 (280-300); Phosphorous 1.9 mg/dL (2.7-4.5); Potassium 4.2 mEq/L (3.5-5.1); Sodium 141 mEq/L (136-145); Total Protein 6.6 g/dL (6.4-8.9); eGFR For African Americans > 60 (> 60); eGFR For Non-African Americans > 60 (> 60)
[2022-05-10] MEDS: Ipratropium/Albuterol Neb 3 ML IH SCH ×4 (04:34→22:33)
[2022-05-10] MEDS: *HR* Enoxaparin 40 MG/0.4 ML SYRINGE SQ SCH (06:11)
[2022-05-10] MEDS: amLODIPine 5 MG TABLET PO SCH (09:16)
[2022-05-10] MEDS: Famotidine 20 MG TABLET PO SCH ×2 (09:16→19:57)
[2022-05-10] MEDS: *HR* Ticagrelor 90 MG TABLET PO SCH ×2 (09:17→19:57)
[2022-05-10] MEDS: MethylPREDNISolone 40 MG/ML VIAL IVP SCH ×2 (09:17→17:45)
[2022-05-10] MEDS: Aspirin 81 MG TAB.CHEW PO SCH (09:17)
[2022-05-10] MEDS: Budesonide/Formoterol 160/4.5 1 PUFF INH IH SCH ×2 (10:12→22:33)
[2022-05-10] MEDS: Azithromycin 250 MG TABLET PO SCH (19:57)
[2022-05-11 03:57] LABS: Hematocrit 28.4 % (37.5-50.1); Hemoglobin 8.8 g/dL (12.9-16.9); Mean Corpuscular Hemoglobin 25.5 pg (28.0-33.3); Mean Corpuscular Volume 82.3 fL (83.0-100.0); Mean Platelet Volume 9.8 fL (9.4-12.4); Platelet Count 272 K/mcL (140-400); Red Blood Count 3.45 M/mcL (4.19-5.50); Red Cell Distribution Width 16.5 % (11.5-14.5); White Blood Count 23.5 K/mcL (4.3-11.1)
[2022-05-11 04:13] LABS: BUN/Creatinine Ratio 31 (6-26); Blood Urea Nitrogen 24 mg/dL (8-23); Calcium 9.1 mg/dL (8.6-10.3); Carbon Dioxide 34 mEq/L (23-29); Chloride 97 mEq/L (98-107); Glucose 160 mg/dL (70-105); Magnesium 2.1 mg/dL (1.6-2.6); Osmolality,Calculated 291 (280-300); Potassium 3.8 mEq/L (3.5-5.1); Sodium 137 mEq/L (136-145); eGFR For African Americans > 60 (> 60); eGFR For Non-African Americans > 60 (> 60)
[2022-05-11] MEDS: Ipratropium/Albuterol Neb 3 ML IH SCH ×4 (04:18→21:12)
[2022-05-11] MEDS: *HR* Enoxaparin 40 MG/0.4 ML SYRINGE SQ SCH (05:04)
[2022-05-11 05:22] LABS: ABG Base Excess 7 mEq/L (-2 to 3); ABG HCO3 32 mEq/L (21-27); ABG Oxygen Saturation 94 % (95-98); ABG PCO2 48 mmHg (35-45); ABG PH 7.43 pH Units (7.32-7.45); ABG PO2 72 mmHg (85-104); ABG TCO2 34 mEq/L (20-26)
[2022-05-11] MEDS: Famotidine 20 MG TABLET PO SCH ×2 (08:38→20:30)
[2022-05-11] MEDS: amLODIPine 5 MG TABLET PO SCH (08:38)
[2022-05-11] MEDS: predniSONE 20 MG TABLET PO SCH (08:39)
[2022-05-11] MEDS: *HR* Ticagrelor 90 MG TABLET PO SCH ×2 (08:39→20:30)
[2022-05-11] MEDS: Aspirin 81 MG TAB.CHEW PO SCH (08:39)
[2022-05-11] MEDS: Budesonide/Formoterol 160/4.5 1 PUFF INH IH SCH ×2 (10:54→21:12)
[2022-05-11] MEDS: Azithromycin 250 MG TABLET PO SCH (20:30)
[2022-05-12] MEDS: Ipratropium/Albuterol Neb 3 ML IH SCH ×3 (03:52→14:40)
[2022-05-12 04:00] LABS: Hematocrit 26.9 % (37.5-50.1); Hemoglobin 8.4 g/dL (12.9-16.9); Mean Corpuscular HGB Conc 31.2 g/dL (31.6-35.5); Mean Corpuscular Hemoglobin 25.9 pg (28.0-33.3); Mean Platelet Volume 10.3 fL (9.4-12.4); Platelet Count 277 K/mcL (140-400); Red Blood Count 3.24 M/mcL (4.19-5.50); Red Cell Distribution Width 17.2 % (11.5-14.5); White Blood Count 21.7 K/mcL (4.3-11.1)
[2022-05-12] MEDS: *HR* Enoxaparin 40 MG/0.4 ML SYRINGE SQ SCH (05:43)
[2022-05-12 06:19] LABS: BUN/Creatinine Ratio 30 (6-26); Blood Urea Nitrogen 23 mg/dL (8-23); Calcium 8.6 mg/dL (8.6-10.3); Carbon Dioxide 33 mEq/L (23-29); Chloride 101 mEq/L (98-107); Glucose 129 mg/dL (70-105); Osmolality,Calculated 291 (280-300); Potassium 3.6 mEq/L (3.5-5.1); Sodium 138 mEq/L (136-145); eGFR For African Americans > 60 (> 60); eGFR For Non-African Americans > 60 (> 60)
[2022-05-12] MEDS: *HR* Ticagrelor 90 MG TABLET PO SCH ×2 (09:07→21:38)
[2022-05-12] MEDS: Famotidine 20 MG TABLET PO SCH ×2 (09:07→21:38)
[2022-05-12] MEDS: amLODIPine 5 MG TABLET PO SCH (09:07)
[2022-05-12] MEDS: Aspirin 81 MG TAB.CHEW PO SCH (09:07)
[2022-05-12] MEDS: predniSONE 20 MG TABLET PO SCH (09:07)
[2022-05-12 09:09] LABS: Phosphorous 2.2 mg/dL (2.7-4.5)
[2022-05-12] MEDS: Budesonide/Formoterol 160/4.5 1 PUFF INH IH SCH ×2 (10:34→20:31)
[2022-05-12] MEDS ORDERED: *HR* HYDROcodone/Acet 10/325 mg TABLET PO PRN (15:11)
[2022-05-12] MEDS ORDERED: Ipratropium/Albuterol Neb 3 ML IH PRN (15:51)
[2022-05-13 02:30] LABS: Hematocrit 28.1 % (37.5-50.1); Hemoglobin 8.8 g/dL (12.9-16.9); Mean Corpuscular HGB Conc 31.3 g/dL (31.6-35.5); Mean Corpuscular Hemoglobin 25.7 pg (28.0-33.3); Mean Corpuscular Volume 81.9 fL (83.0-100.0); Mean Platelet Volume 9.4 fL (9.4-12.4); Platelet Count 272 K/mcL (140-400); Red Blood Count 3.43 M/mcL (4.19-5.50); Red Cell Distribution Width 17.3 % (11.5-14.5); White Blood Count 16.8 K/mcL (4.3-11.1)
[2022-05-13 02:42] LABS: BUN/Creatinine Ratio 31 (6-26); Blood Urea Nitrogen 24 mg/dL (8-23); Calcium 8.7 mg/dL (8.6-10.3); Carbon Dioxide 31 mEq/L (23-29); Chloride 104 mEq/L (98-107); Glucose 145 mg/dL (70-105); Osmolality,Calculated 295 (280-300); Potassium 4.4 mEq/L (3.5-5.1); Sodium 139 mEq/L (136-145); eGFR For African Americans > 60 (> 60); eGFR For Non-African Americans > 60 (> 60)
[2022-05-13] MEDS: *HR* Enoxaparin 40 MG/0.4 ML SYRINGE SQ SCH (05:21)
[2022-05-13 06:35] VITALS: BP 118/58; PULSE 86; TEMP 97.9
[2022-05-13] MEDS: amLODIPine 5 MG TABLET PO SCH (07:47)
[2022-05-13] MEDS: predniSONE 20 MG TABLET PO SCH (07:47)
[2022-05-13] MEDS: Aspirin 81 MG TAB.CHEW PO SCH (07:47)
[2022-05-13] MEDS: *HR* Ticagrelor 90 MG TABLET PO SCH (07:47)
[2022-05-13] MEDS: Famotidine 20 MG TABLET PO SCH (07:47)
[2022-05-13] MEDS ORDERED: Furosemide 20 MG TABLET PO SCH (09:00)
[2022-05-13] MEDS: Budesonide/Formoterol 160/4.5 1 PUFF INH IH SCH (10:38)
[2022-05-13 10:41] VITALS: O2SAT 91
== END 2022-05-13 14:01 | disposition home or self-care (01) | DRG 189 ==
LOC: EMEROOARM 21:46 → 2NENU 21:46 → SUATTDRO 05-10 00:02 → 2NENU 05-10 00:44
PROVIDERS: ADMIT Internal Medicine; ATTEND Internal Medicine

== ENCOUNTER 2022-09-23 20:44 | Inpatient (IN) ==
[2022-09-23] MEDS ORDERED: Ipratropium/Albuterol Neb 3 ML IH ONE (21:26)
[2022-09-23] MEDS ORDERED: Cefepime HCl 2,000 MG in 0.9 % Sodium Chloride 10 ML IVP ONE (21:27)
[2022-09-23] MEDS ORDERED: methylPREDNISolone 125 MG/2 ML VIAL IVP ONE (21:27)
[2022-09-23] MEDS ORDERED: Aspirin 325 MG TABLET PO ONE (21:31)
[2022-09-23 22:10] LABS: Basophils % 0.2 %; Immature Granulocytes % 0.9 % (0-4); Mean Corpuscular Volume 83.4 fL (83.0-100.0); Mean Platelet Volume 9.4 fL (9.4-12.4); Red Cell Distribution Width 18.1 % (11.5-14.5)
[2022-09-23 22:11] LABS: Basophils # 0.1 K/mcL (0.0-0.2); Hematocrit 38.2 % (37.5-50.1); Hemoglobin 10.9 g/dL (12.9-16.9); Lymphocytes # 1.1 K/mcL (0.6-4.6); Lymphocytes % 3.1 %; Mean Corpuscular HGB Conc 28.5 g/dL (31.6-35.5); Mean Corpuscular Hemoglobin 23.8 pg (28.0-33.3); Monocytes % 13.6 %; Platelet Count 335 K/mcL (140-400); Red Blood Count 4.58 M/mcL (4.19-5.50); Segmented Neutrophils % 82.2 %
[2022-09-23 22:20] LABS: Prothrombin Time 10.9 Seconds (9.4-12.1)
[2022-09-23 22:22] LABS: White Blood Count 36.5 K/mcL (4.3-11.1)
[2022-09-23 22:23] LABS: Activated Partial Thrombo Time 29.9 Seconds (26.0-36.0)
[2022-09-23 22:28] LABS: ABG Base Excess 13 mEq/L (-2 to 3); ABG HCO3 40 mEq/L (21-27); ABG Oxygen Saturation 93 % (95-98); ABG PCO2 66 mmHg (35-45); ABG PO2 69 mmHg (85-104); ABG TCO2 42 mEq/L (20-26); Blood Gas Modality BiLevel
[2022-09-23 22:38] LABS: Alanine Aminotransferase 13 Units/L (7-52); Albumin 4.3 g/dL (3.5-5.7); Albumin/Globulin Ratio 1.5 (1.1-2.2); Alkaline Phosphatase 71 Units/L (34-104); Aspartate Amino Transferase 19 Units/L (13-39); BUN/Creatinine Ratio 21 (6-26); Bilirubin,Direct 0.1 mg/dL (0.0-0.2); Bilirubin,Indirect 0.7 mg/dL (0.0-1.0); Bilirubin,Total 0.8 mg/dL (0.3-1.0); Blood Urea Nitrogen 15 mg/dL (8-23); Calcium 9.3 mg/dL (8.6-10.3); Carbon Dioxide 41 mEq/L (23-29); Chloride 96 mEq/L (98-107); Creatine Kinase 35 Units/L (30-223); Globulin 2.9 g/dL (2.4-3.5); Glucose 140 mg/dL (70-105); Osmolality,Calculated 281 (280-300); Potassium 4.5 mEq/L (3.5-5.1); Sodium 134 mEq/L (136-145); Total Protein 7.2 g/dL (6.4-8.9); Troponin I < 0.03 ng/mL (< 0.04)
[2022-09-23 22:44] LABS: Anisocytosis 1+ (Not Present); Hypochromasia Present (Not Present); Platelet Estimate Normal (Normal); Reactive Lymphocytes Present (Not Present)
[2022-09-23 23:05] LABS: Adenovirus Not Detected (Not Detect); Bordetella Pertussis Not Detected (Not Detect); Chlamydophila pneumoniae Not Detected (Not Detect); Coronavirus 229E Not Detected (Not Detect); Coronavirus HKU1 Not Detected (Not Detect); Coronavirus NL63 Not Detected (Not Detect); Coronavirus OC43 Not Detected (Not Detect); Human Metapneumovirus Not Detected (Not Detect); Human Rhinovirus/Enterovirus Not Detected (Not Detect); Influenza A Subtype 2009 H1 Not Detected (Not Detect); Influenza B Not Detected (Not Detect); Mycoplasma pneumoniae Not Detected (Not Detect); Parainfluenza Virus 1 Not Detected (Not Detect); Parainfluenza Virus 2 Not Detected (Not Detect); Parainfluenza Virus 3 Not Detected (Not Detect); Parainfluenza Virus 4 Not Detected (Not Detect); Respiratory Syncytial Virus Not Detected (Not Detect); SARS-CoV-2 Not Detected (Not Detect)
[2022-09-23] MEDS: 0.9 % Sodium Chloride 1,000 ML IVC SCH (23:23)
[2022-09-23] MEDS ORDERED: Naloxone 0.4 MG/ML INJ IVP PRN (23:27)
[2022-09-23] MEDS ORDERED: Acetaminophen 325 MG TABLET PO PRN (23:27)
[2022-09-23] MEDS ORDERED: D5% in Water 1,000 ML IVC PRN (23:38)
[2022-09-23] MEDS ORDERED: *HR* Dextrose 50 % in Water (Syg) 50 ML SYRINGE IVP PRN (23:38)
[2022-09-23] MEDS ORDERED: Dextrose Gel 15 GM/37.5 ML TUBE PO PRN ×2 (23:38)
[2022-09-24] MEDS: 0.9 % Sodium Chloride 1,000 ML IVC SCH ×4 (01:24→20:42)
[2022-09-24] MEDS ORDERED: Saliva Stimulant 44.3ml BOTTLE PO PRN (02:52)
[2022-09-24] MEDS ORDERED: Saline Nasal Spray 44 ML BOTTLE NS PRN (02:55)
[2022-09-24] MEDS ORDERED: Artificial Tears SOLN 15 ML BOTTLE BOTH EYES PRN (02:55)
[2022-09-24] MEDS: Ipratropium/Albuterol Neb 3 ML IH SCH ×6 (03:37→22:49)
[2022-09-24 03:50] LABS: ABG Base Excess 13 mEq/L (-2 to 3); ABG HCO3 40 mEq/L (21-27); ABG Oxygen Saturation 95 % (95-98); ABG PCO2 65 mmHg (35-45); ABG PO2 77 mmHg (85-104); ABG TCO2 42 mEq/L (20-26); Blood Gas Pressure Support 12 cm H2O
[2022-09-24] MEDS: Azithromycin 500 MG in 0.9 % Sodium Chloride 250 ML IVPB SCH (03:56)
[2022-09-24 04:40] LABS: Hematocrit 31.2 % (37.5-50.1); Mean Corpuscular HGB Conc 29.8 g/dL (31.6-35.5); Mean Corpuscular Hemoglobin 24.6 pg (28.0-33.3); Mean Corpuscular Volume 82.5 fL (83.0-100.0); Platelet Count 271 K/mcL (140-400); Red Blood Count 3.78 M/mcL (4.19-5.50); Red Cell Distribution Width 17.9 % (11.5-14.5); White Blood Count 28.4 K/mcL (4.3-11.1)
[2022-09-24 04:41] LABS: Hemoglobin 9.3 g/dL (12.9-16.9)
[2022-09-24 05:00] LABS: BUN/Creatinine Ratio 22 (6-26); Blood Urea Nitrogen 16 mg/dL (8-23); Calcium 8.6 mg/dL (8.6-10.3); Carbon Dioxide 37 mEq/L (23-29); Chloride 96 mEq/L (98-107); Glucose 266 mg/dL (70-105); Magnesium 1.6 mg/dL (1.6-2.6); Osmolality,Calculated 296 (280-300); Phosphorous 1.8 mg/dL (2.7-4.5); Potassium 4.2 mEq/L (3.5-5.1); Sodium 138 mEq/L (136-145)
[2022-09-24] MEDS: Cefepime HCl 2,000 MG in 0.9 % Sodium Chloride 10 ML IVP SCH ×3 (06:16→20:42)
[2022-09-24] MEDS: Budesonide/Formoterol 160/4.5 1 PUFF INH IH SCH ×2 (07:16→20:11)
[2022-09-24] MEDS ORDERED: Vancomycin 1,250 MG/262.5 ML IV.SOLN IVPB SCH (10:00)
[2022-09-24] MEDS: *HR* Heparin 5,000 UNIT/ML VIAL SQ SCH ×4 (10:01→20:47)
[2022-09-24] MEDS: MethylPREDNISolone 40 MG/ML VIAL IVP SCH ×2 (10:01→16:53)
[2022-09-24] MEDS: Chlorhexidine Rinse 15 ML MOUTHWASH MM SCH ×2 (10:01→20:42)
[2022-09-24] MEDS: Insulin LISPRO 300 UNITS/3 ML VIAL SUBQ SCH ×4 (12:00→21:50)
[2022-09-24] MEDS: Nicotine 14 MG PATCH.TD24 TD SCH (16:53)
[2022-09-24 17:20] LABS: Bilirubin,Urine Negative (Negative); Blood,Urine Negative (Negative); Clarity,Urine Clear (Clear); Color,Urine Yellow (Yellow); Glucose,Urine (UA) 150 mg/dL (Normal); Ketones,Urine Trace mg/dL (Negative); Leukocyte Esterase,Urine Negative (Negative); Mucus,Urine Few per lpf (None-Few); Nitrite,Urine Negative (Negative); PH,Urine 6.5 pH Units (5.0-8.0); Protein,Urine 30 mg/dL (Neg-Trace); RBC,Urine 0-3 per hpf (0-3); Specific Gravity,Urine 1.027 (1.010-1.025); Squamous Epithelial Cell,Urine Few per hpf (None-Few); Urobilinogen,Urine Normal (Normal); WBC,Urine 0-3 per hpf (0-3)
[2022-09-25] MEDS: MethylPREDNISolone 40 MG/ML VIAL IVP SCH ×3 (00:25→17:39)
[2022-09-25 03:52] LABS: Hematocrit 25.1 % (37.5-50.1); Mean Corpuscular HGB Conc 30.3 g/dL (31.6-35.5); Mean Corpuscular Hemoglobin 24.4 pg (28.0-33.3); Mean Corpuscular Volume 80.4 fL (83.0-100.0); Mean Platelet Volume 9.4 fL (9.4-12.4); Platelet Count 236 K/mcL (140-400); Red Blood Count 3.12 M/mcL (4.19-5.50); Red Cell Distribution Width 17.9 % (11.5-14.5)
[2022-09-25 03:53] LABS: Hemoglobin 7.6 g/dL (12.9-16.9)
[2022-09-25] MEDS: *HR* HYDROcodone/Acet 10/325 mg TABLET PO PRN ×2 (03:58→17:42)
[2022-09-25] MEDS: Azithromycin 500 MG in 0.9 % Sodium Chloride 250 ML IVPB SCH (03:59)
[2022-09-25 04:13] LABS: BUN/Creatinine Ratio 24 (6-26); Blood Urea Nitrogen 16 mg/dL (8-23); Calcium 8.4 mg/dL (8.6-10.3); Carbon Dioxide 33 mEq/L (23-29); Chloride 100 mEq/L (98-107); Glucose 157 mg/dL (70-105); Magnesium 1.9 mg/dL (1.6-2.6); Osmolality,Calculated 286 (280-300); Phosphorous 1.3 mg/dL (2.7-4.5); Potassium 4.1 mEq/L (3.5-5.1); Sodium 136 mEq/L (136-145)
[2022-09-25] MEDS: Ipratropium/Albuterol Neb 3 ML IH SCH ×5 (04:24→19:55)
[2022-09-25] MEDS: Cefepime HCl 2,000 MG in 0.9 % Sodium Chloride 10 ML IVP SCH ×3 (06:27→21:50)
[2022-09-25] MEDS: 0.9 % Sodium Chloride 1,000 ML IVC SCH ×2 (06:27→15:03)
[2022-09-25] MEDS: *HR* Heparin 5,000 UNIT/ML VIAL SQ SCH ×3 (06:27→21:50)
[2022-09-25] MEDS: Budesonide/Formoterol 160/4.5 1 PUFF INH IH SCH ×2 (08:02→19:55)
[2022-09-25] MEDS: Insulin LISPRO 300 UNITS/3 ML VIAL SUBQ SCH ×4 (09:14→21:50)
[2022-09-25] MEDS: Nicotine 14 MG PATCH.TD24 TD SCH (09:18)
[2022-09-25] MEDS: Chlorhexidine Rinse 15 ML MOUTHWASH MM SCH (09:19)
[2022-09-25] MEDS ORDERED: Aspirin 81 MG TAB.CHEW PO SCH (12:30)
[2022-09-25 15:17] LABS: Hematocrit 24.5 % (37.5-50.1); Hemoglobin 7.4 g/dL (12.9-16.9)
[2022-09-25 19:58] VITALS: O2SAT 93
[2022-09-25 20:18] VITALS: BP 127/59; PULSE 99; TEMP 98.1
[2022-09-25] MEDS ORDERED: Famotidine 20 MG TABLET PO SCH (21:00)
[2022-09-25] MEDS ORDERED: *HR* Heparin 5,000 UNIT/ML VIAL IVP ONE (21:40)
[2022-09-25] MEDS ORDERED: 0.9 % Sodium Chloride 10 ML PF VIAL IVP ONE (21:40)
[2022-09-26] MEDS ORDERED: Furosemide 20 MG TABLET PO SCH (09:00)
== END 2022-09-25 23:59 | disposition other institution (70) | DRG 871 ==
LOC: EMEROOARM 20:44 → 2NENU 20:44 → OBSVTOIN 23:53 → SUATTDRO 23:53 → 2NENU 09-24 00:39
PROVIDERS: ADMIT Internal Medicine; ATTEND Internal Medicine